=== PATIENT | female | born 1975 | race Caucasian/White ===

== ENCOUNTER 2018-11-26 06:55 | Emergency (ER) | payer SELFPAY ==
[~2018-11-26] VITALS: Ht 167.6 cm; Wt 95.5 kg
[~2018-11-26 06:55] MED LIST: AMOX-842 PO
[2018-11-26 07:01] VITALS: BP 111/71
--- NOTE | 2018-11-26 07:07 | NUR ---
PT AMBULATED TO BED #2
--- NOTE | 2018-11-26 07:20 | NUR ---
PT C/O COUGH X 2 WEEKS. PT STATED SHE ALSO HAS A LUMP IN HER UPPER ABDOMEN REGION DUE TO COUGHING. NO FEVER. PT HAS N/V. SHE STATES SHE VOMITS PHLEGM. LUNG SOUNDS CLEAR BILATERAL . DENIES D; SKIN IS PINK/WARM/DRY; AAOX4 WITH EVEN AND STEADY GAIT; LUNGS CLEAR BL; HR EVEN AND REGULAR; PT DENIES ANY FEVER, CP, SOB, OR COUGH AT THIS TIME; PATIENT STATES PAIN OF 7/10 AT THIS TIME; VSS; PATIENT POSITIONED FOR COMFORT; HOB ELEVATED; BEDRAILS UP X2; BED DOWN. ER MD MADE AWARE OF PT STATUS.
[2018-11-26 07:50] VITALS: BP 111/71
--- NOTE | 2018-11-26 07:51 | NUR ---
Patient discharged with v/s stable. Written and verbal after care instructions given and explained. Patient alert, oriented and verbalized understanding of instructions. Ambulatory with steady gait. All questions addressed prior to discharge. ID band removed. Patient advised to follow up with PMD. Rx of PREDNISONE AND PROMETHAZINE HYDROCHLORIDE given. Patient educated on indication of medication including possible reaction and side effects. Opportunity to ask questions provided and answered.
== END 2018-11-26 07:51 | disposition home or self-care (01) ==
LOC: MED 06:55
DX: R05 Cough (principal); R50.9 Fever, unspecified; Z79.2 Long term (current) use of antibiotics
CPT/HCPCS: 71045; 99283; Q0092

== ENCOUNTER 2018-12-01 08:13 | Emergency (ER) | payer SELFPAY ==
[~2018-12-01] VITALS: Ht 170.2 cm; Wt 94.6 kg
[2018-12-01 08:15] VITALS: BP 110/96
--- NOTE | 2018-12-01 08:23 | NUR ---
Monique york in [facility] - 12/01/18 at 0823 by [facility] PT AMBULATES TO BED 11
--- NOTE | 2018-12-01 08:24 | NUR ---
PT AMBULATES TO BED 2
--- NOTE | 2018-12-01 08:26 | NUR ---
PT BIB SELF TO THE ED WITH THE CHIEF C/O LUQ ABDOMINAL PAIN THAT RADIATES TO BACK. TENDER TO TOUCH. ABDOMEN SOFT, ROUND. ACTIVE BOWEL SOUND. PT REPORTS NAUSEATED. VOMITED X4, YELLOWISH. NO BLOOD IN VOMIT. REPORTS NO APPITITE. DENIES DIARRHEA. DENIES ANY FEVER. DENIES BURNING OR FREQUENCY OF URINATION. STATES PAIN OF 8/10. VSS. ER AWARE.
--- NOTE | 2018-12-01 08:35 | NUR ---
Patient being evaluated by physician at bedside.
[2018-12-01] MEDS ORDERED: KETOROLAC 30 MG/ML VIAL IVP ONE (08:40)
[2018-12-01] MEDS ORDERED: NACL 0.9% 1,000 ML IV SCH (08:40)
--- NOTE | 2018-12-01 09:00 | NUR ---
PT TAKEN FOR CT.
[2018-12-01 09:01] LABS: BASOPHILS % (AUTO) 0.5 % (0.0-2.0); EOSINOPHILS # (AUTO) 0.1 K/uL (0-0.4); EOSINOPHILS % (AUTO) 1.6 % (0.0-4.0); HEMATOCRIT 39.5 % (36-48); HEMOGLOBIN 13.2 g/dL (12.0-16.0); LYMPHOCYTES % (AUTO) 29.3 % (20.5-51.1); MEAN CORPUSCULAR HEMOGLOBIN 27 pg (27-31); MEAN CORPUSCULAR HGB CONC 33 g/dL (33-37); MEAN CORPUSCULAR VOLUME 81.6 fL (80-94); MONOCYTES # (AUTO) 0.4 K/uL (0.8-1.0); MONOCYTES % (AUTO) 5.5 % (1.7-9.3); NEUTROPHILS # (AUTO) 4.4 K/uL (1.8-7.7); NEUTROPHILS % (AUTO) 63.1 % (42.2-75.2); PLATELET COUNT (AUTO) 301 K/uL (140-450); RED BLOOD CELL COUNT(AUTO) 4.84 MIL/uL (4.20-5.40); RED CELL DISTRIBUTION WIDTH 14.3 % (11.6-13.7); WHITE BLOOD COUNT (AUTO) 6.9 K/uL (4.8-10.8)
[2018-12-01 09:14] LABS: ANION GAP 9.8 (8-16); CARBON DIOXIDE 29.8 mmol/L (21-32); CREATININE 0.6 mg/dL (0.6-1.3); POTASSIUM 3.6 mmol/L (3.5-5.1)
[2018-12-01 09:21] LABS: ALBUMIN 3.4 g/dL (3.4-5.0)
--- NOTE | 2018-12-01 09:48 | NUR ---
PT APPEARS RELAXED AND RESTING IN BED. PT DENIES ANY NAUSEA AT THIS TIME. NO VOMITING NOTED.
--- NOTE | 2018-12-01 10:09 | NUR ---
PT BEING REEVALUATED BY ER AT THIS TIME.
--- NOTE | 2018-12-01 11:03 | NUR ---
Patient discharged with v/s stable. Written and verbal after care instructions given and explained. Patient alert, oriented and verbalized understanding of instructions. Ambulatory with steady gait. All questions addressed prior to discharge. ID band removed. Patient advised to follow up with PMD. Rx of MIRALAX AND NORCO given. Patient educated on indication of medication including possible reaction and side effects. Opportunity to ask questions provided and answered.
[2018-12-01 11:04] VITALS: BP 105/60
--- NOTE | 2018-12-03 10:46 | NUR ---
Late entry. Confirmed with RN that 1000ml 0.9 NS IV completed at 10:00.
== END 2018-12-01 11:03 | disposition home or self-care (01) ==
LOC: MED 08:13
DX: R10.12 Left upper quadrant pain (principal); Z79.2 Long term (current) use of antibiotics; Z90.49 Acquired absence of other specified parts of digestive tract
CPT/HCPCS: 36415; 74176; 80053; 81002; 81025; 83690; 85025; 96361; 96374; 99284; J1885; J7030

== ENCOUNTER 2021-04-02 16:23 | Emergency (ER) | payer MEDICAID ==
[~2021-04-02] VITALS: Ht 170.2 cm; Wt 68.0 kg
[~2021-04-02 16:23] MED LIST changes: -AMOX-842 PO; +AMOX1TAB8 PO
[2021-04-02 16:28] VITALS: BP 100/67
[2021-04-02] MEDS ORDERED: KETOROLAC 30 MG/ML VIAL IM ONE (17:55)
[2021-04-02 18:12] LABS: BASOPHILS % (AUTO) 0.1 % (0.0-2.0); EOSINOPHILS % (AUTO) 0.2 % (0.0-4.0); HEMATOCRIT 38.5 % (36-48); HEMOGLOBIN 12.8 g/dL (12.0-16.0); LYMPHOCYTES % (AUTO) 11.5 % (20.5-51.1); MEAN CORPUSCULAR HEMOGLOBIN 29 pg (27-31); MEAN CORPUSCULAR HGB CONC 33 g/dL (33-37); MONOCYTES # (AUTO) 0.8 K/uL (0.8-1.0); MONOCYTES % (AUTO) 8.9 % (1.7-9.3); NEUTROPHILS # (AUTO) 7.1 K/uL (1.8-7.7); NEUTROPHILS % (AUTO) 79.3 % (42.2-75.2); PLATELET COUNT (AUTO) 268 K/uL (140-450); RED BLOOD CELL COUNT(AUTO) 4.43 MIL/uL (4.20-5.40); RED CELL DISTRIBUTION WIDTH 13.9 % (11.6-13.7); WHITE BLOOD COUNT (AUTO) 8.9 K/uL (4.8-10.8)
[2021-04-02 18:24] LABS: ALBUMIN 3.5 g/dL (3.4-5.0); ANION GAP 9.8 (8-16); CREATININE 1.3 mg/dL (0.6-1.3); POTASSIUM 3.8 mmol/L (3.5-5.1); TOTAL BILIRUBIN 4.5 mg/dL (0.0-1.0)
[2021-04-02] MEDS ORDERED: PYR100 PO (18:52)
[2021-04-02] MEDS ORDERED: SULF-59 PO (18:52)
[2021-04-02] MEDS ORDERED: ACET-10509 PO (18:52)
--- NOTE | 2021-04-02 18:54 | NUR ---
PT COMPLAINS OF BODYACHES, HOTFLASHES X 2 DAYS. PT DENIES COUGH, STATES THAT LAST PERIOD WAS IN NOVEMBER. PT DENIES SOB. PT COMPLAINS ALSO COMPLAINS OF ABDOMINAL PAIN 04/17, DENIES N/V/D. DECREASED APPETITE. PMH - HERNIA ALLERGIES - NKA
[2021-04-02] MEDS ORDERED: KETOROLAC 30 MG/ML VIAL ONE (18:57)
[2021-04-02 19:04] VITALS: BP 100/67
--- NOTE | 2021-04-02 19:05 | NUR ---
Patient discharged with v/s stable. Written and verbal after care instructions given and explained. Patient alert, oriented and verbalized understanding of instructions. Ambulatory with steady gait. All questions addressed prior to discharge. ID band removed. Patient advised to follow up with PMD. Rx of bactrim, pyridium, tylenol given. Patient educated on indication of medication including possible reaction and side effects. Opportunity to ask questions provided and answered.
== END 2021-04-02 19:05 | disposition home or self-care (01) ==
LOC: MED 16:23
DX: N39.0 Urinary tract infection, site not specified (principal)
CPT/HCPCS: 36415; 80053; 81002; 81025; 85025; 96372; 99283; J1885

== ENCOUNTER 2021-06-12 17:18 | Emergency (ER) | payer MEDICAID ==
[~2021-06-12] VITALS: Ht 170.2 cm; Wt 74.8 kg
[~2021-06-12 17:18] MED LIST changes: +ACET-10509 PO; +PYR100 PO; +SULF-59 PO
[2021-06-12 17:53] VITALS: BP 115/71
--- NOTE | 2021-06-12 21:30 | NUR ---
PT SEEN AND EVALUATED BY DR. BALL. NO NURSING CARE PROVIDED.
[2021-06-12] MEDS ORDERED: NAPR-54 PO (22:00)
== END 2021-06-12 22:15 | disposition home or self-care (01) ==
LOC: MED 17:18
DX: M79.18 Myalgia, other site (principal); M25.511 Pain in right shoulder; Z79.1 Long term (current) use of non-steroidal anti-inflammatories (NSAID); Z79.899 Other long term (current) drug therapy; Z79.2 Long term (current) use of antibiotics
CPT/HCPCS: 73030; 99283

== ENCOUNTER 2021-10-09 14:38 | Emergency (ER) | payer MEDICAID ==
[~2021-10-09] VITALS: Ht 170.2 cm; Wt 74.8 kg
[~2021-10-09 14:38] MED LIST changes: +AMOX-1230 PO; -AMOX1TAB8 PO; +NAPR-54 PO
[2021-10-09 14:52] VITALS: BP 126/81
--- NOTE | 2021-10-09 14:59 | NUR ---
PT AMB TO BED 12.
[2021-10-09] MEDS ORDERED: MORPHINE SULFATE 4 MG/ML SYR IVP ONE (15:25)
[2021-10-09] MEDS ORDERED: KETOROLAC 30 MG/ML VIAL IVP ONE (15:25)
[2021-10-09] MEDS ORDERED: ONDANSETRON 4 MG/2 ML VIAL IVP ONE (15:25)
--- NOTE | 2021-10-09 15:25 | NUR ---
LAB AT BEDSIDE.
[2021-10-09 15:33] LABS: HEMATOCRIT 40.8 % (36-48); MEAN CORPUSCULAR HEMOGLOBIN 29 pg (27-31); MEAN CORPUSCULAR HGB CONC 34 g/dL (33-37); MEAN CORPUSCULAR VOLUME 84.7 fL (80-94); PLATELET COUNT (AUTO) 223 K/uL (140-450); RED BLOOD CELL COUNT(AUTO) 4.82 MIL/uL (4.20-5.40); RED CELL DISTRIBUTION WIDTH 14.5 % (11.6-13.7); WHITE BLOOD COUNT (AUTO) 8.5 K/uL (4.8-10.8)
[2021-10-09 15:33] LABS: APPEARANCE,URINE CLEAR (CLEAR); BILIRUBIN,URINE 1+ (NEGATIVE); BLOOD, URINE 3+ (NEGATIVE); COLOR,URINE YELLOW (YELLOW); LEUKOCYTE ESTERASE ,URINE 1+ (NEGATIVE); NITRITE, URINE NEGATIVE (NEGATIVE); UGLUCOSE NEGATIVE (NEGATIVE)
--- NOTE | 2021-10-09 15:40 | NUR ---
45Y FEMALE FROM HOME DUE TO C/O LEFT FLANK PAIN, URINARY BURNING, AND NAUSEA X1 DAY. PT STATED TODAY SHE STARTED TO EXPERIENCE SUBJECTIVE FEVER AND EXPERINCED HEMATURIA XTODAY. PAIN IS CURRENTLY 10/10 AND IS THROBBING LIKE PAIN. PT IS CURRENTLY A&OX4, SKIN DRY AND INTACT. PT PROVIDED WITH GOWN BEDSIDE PMH: GALL BLADDER REMOVAL NKA
[2021-10-09 15:55] LABS: ALBUMIN 3.2 g/dL (3.4-5.0); ANION GAP 14.1 (8-16); CARBON DIOXIDE 26.6 mmol/L (21-32); CREATININE 0.9 mg/dL (0.6-1.3); POTASSIUM 3.7 mmol/L (3.5-5.1); TOTAL BILIRUBIN 4.2 mg/dL (0.0-1.0)
[2021-10-09 16:47] LABS: CALCIUM OXALATE CRYSTALS,UR None Seen /HPF (None Seen); COARSE GRANULAR CASTS,URINE None Seen /LPF (None Seen); FINE GRANULAR CASTS,URINE None Seen /LPF (None Seen); HYALINE CASTS, URINE None Seen /LPF (None Seen); OTHER CASTS, URINE None Seen /LPF (None Seen); OTHER CRYSTALS,URINE None Seen /HPF (None Seen); RED BLOOD CELL CASTS,URINE None Seen /LPF (None Seen); TRICHOMONAS,URINE None Seen /HPF (None Seen); TRIPLE PHOSPHATE CRYSTAL,UR None Seen /HPF (None Seen); URIC ACID CRYSTALS,URINE None Seen /HPF (None Seen); URINE AMORPHOUS URATE None Seen /HPF (None Seen); WAXY CASTS,URINE None Seen /LPF (None Seen); YEAST,URINE None Seen /HPF (None Seen)
--- NOTE | 2021-10-09 17:00 | NUR ---
Patient appears to be resting comfortably in bed. Vital Signs within normal limits. Respirations even and unlabored. BED IN LOWEST POSITION AND LOCKED. LIGHTS TURNED OFF IN ROOM
[2021-10-09 17:27] LABS: BASOPHILS % (MANUAL) 0 % (0-2); EOSINOPHILS % (MANUAL) 0 % (0-4); LYMPHOCYTES % (MANUAL) 7 % (20-46); MONOCYTES % (MANUAL) 5 % (5-12)
[2021-10-09] MEDS ORDERED: IBUP-2213 PO (17:27)
[2021-10-09] MEDS ORDERED: CEPH250C16 PO (17:27)
[2021-10-09 17:28] LABS: BUFFY COAT SMEAR PREP N
[2021-10-09] MEDS ORDERED: cefTRIAXone 1,000 MG VIAL ONE (17:35)
[2021-10-09 18:19] VITALS: BP 110/62
--- NOTE | 2021-10-09 18:20 | NUR ---
Patient discharged with v/s stable. Written and verbal after care instructions given and explained. Patient alert, oriented and verbalized understanding of instructions. Ambulatory with steady gait. All questions addressed prior to discharge. ID band removed. Patient advised to follow up with PMD. Rx of KEFLEX AND IBUPROFEN given. Patient educated on indication of medication including possible reaction and side effects. Opportunity to ask questions provided and answered.
== END 2021-10-09 18:20 | disposition home or self-care (01) ==
LOC: MED 14:38
DX: N12 Tubulo-interstitial nephritis, not specified as acute or chronic (principal)
CPT/HCPCS: 36415; 74176; 80053; 81001; 81025; 83690; 85025; 87086; 96365; 96375; 99284; J0696; J1885; J2270; J2405

== ENCOUNTER 2021-12-29 16:30 | Emergency (ER) | payer MEDICAID ==
[~2021-12-29] VITALS: Ht 170.2 cm; Wt 78.9 kg
[~2021-12-29 16:30] MED LIST changes: +CEPH250C16 PO; +IBUP-2213 PO
[2021-12-29 16:34] VITALS: BP 107/78
== END 2021-12-29 17:07 | disposition home or self-care (01) ==
LOC: MED 16:30
DX: L72.8 Other follicular cysts of the skin and subcutaneous tissue (principal); M54.2 Cervicalgia; Z79.899 Other long term (current) drug therapy
CPT/HCPCS: 99284

== ENCOUNTER 2022-01-01 15:29 | Emergency (ER) | payer MEDICAID ==
[~2022-01-01] VITALS: Ht 170.2 cm; Wt 79.9 kg
[2022-01-01 15:47] VITALS: BP 114/73
--- NOTE | 2022-01-01 15:53 | NUR ---
PT AMB TO BED2.
--- NOTE | 2022-01-01 16:23 | NUR ---
46 Y/O FEMALE STATES SHE HAS LUMPS/BUMPS THAT APPEARED ON THE RIGHT SIDE OF HER HEAD/NECK, 2 BUMPS TOTAL WHICH SHE FEELS PRESSURE. SHE STATES SHE HAD FEVER ONCE LAST NIGHT
[2022-01-01] MEDS ORDERED: IBUPROFEN 600 MG TAB PO ONE (17:00)
[2022-01-01 17:59] VITALS: BP 114/73
== END 2022-01-01 17:59 | disposition home or self-care (01) ==
LOC: MED 15:29
DX: L98.8 Other specified disorders of the skin and subcutaneous tissue (principal); Z79.2 Long term (current) use of antibiotics; Z79.1 Long term (current) use of non-steroidal anti-inflammatories (NSAID); Z79.899 Other long term (current) drug therapy
CPT/HCPCS: 99284

== ENCOUNTER 2023-08-06 10:00 | Emergency (ER) | payer MEDICAID ==
[~2023-08-06] VITALS: Ht 167.6 cm; Wt 59.0 kg
[2023-08-06 10:44] VITALS: BP 105/76; PULSE 89; RESP 18; TEMP 98; O2SAT 98
[2023-08-06 11:10] LABS: APPEARANCE,URINE CLEAR (CLEAR); BILIRUBIN,URINE NEGATIVE (NEGATIVE); BLOOD, URINE TRACE-I (NEGATIVE); COLOR,URINE YELLOW (YELLOW); LEUKOCYTE ESTERASE ,URINE NEGATIVE (NEGATIVE); NITRITE, URINE NEGATIVE (NEGATIVE); PROTEIN,URINE NEGATIVE (NEGATIVE); UGLUCOSE NEGATIVE (NEGATIVE); UROBILINOGEN,URINE 0.2 EU/dL (0.2 - 1)
[2023-08-06 12:35] LABS: BASOPHILS % (AUTO) 0.2 % (0.0-2.0); EOSINOPHILS # (AUTO) 0.1 K/uL (0-0.4); EOSINOPHILS % (AUTO) 0.9 % (0.0-4.0); HEMOGLOBIN 13.8 g/dL (12.0-16.0); LYMPHOCYTES # (AUTO) 2.2 K/uL (2.5-16.5); LYMPHOCYTES % (AUTO) 23.6 % (20.5-51.1); MEAN CORPUSCULAR HEMOGLOBIN 28 pg (27-31); MEAN CORPUSCULAR HGB CONC 33 g/dL (33-37); MONOCYTES # (AUTO) 0.5 K/uL (0.8-1.0); MONOCYTES % (AUTO) 5.4 % (1.7-9.3); NEUTROPHILS # (AUTO) 6.6 K/uL (1.8-7.7); NEUTROPHILS % (AUTO) 69.9 % (42.2-75.2); PLATELET COUNT (AUTO) 313 K/uL (140-450); RED BLOOD CELL COUNT(AUTO) 4.94 MIL/uL (4.20-5.40); RED CELL DISTRIBUTION WIDTH 13.8 % (11.6-13.7); WHITE BLOOD COUNT (AUTO) 9.4 K/uL (4.8-10.8)
[2023-08-06 13:15] LABS: ANION GAP 12.3 (8-16); CALCIUM 8.9 mg/dL (8.5-10.1); CARBON DIOXIDE 28.7 mmol/L (21-32); CREATININE 0.7 mg/dL (0.6-1.3)
[2023-08-06 13:37] LABS: ALBUMIN 3.6 g/dL (3.4-5.0); BILIRUBIN,DIRECT 0.3 mg/dL (0.0-0.3); TOTAL BILIRUBIN 2.9 mg/dL (0.0-1.0); TOTAL PROTEIN, SERUM 7.6 g/dL (6.4-8.2)
[2023-08-06] MEDS ORDERED: KETOROLAC 30 MG/ML VIAL IM ONE (13:40)
[2023-08-06] MEDS ORDERED: NAPR-54 PO (15:06)
[2023-08-06] MEDS ORDERED: ACET-10509 PO (15:06)
[2023-08-06 15:30] VITALS: BP 11/75; PULSE 80; RESP 18; TEMP 98; O2SAT 98
== END 2023-08-06 15:30 | disposition home or self-care (01) ==
LOC: MED 10:00
DX: R07.81 Pleurodynia (principal); Z90.49 Acquired absence of other specified parts of digestive tract; Z79.899 Other long term (current) drug therapy; Z79.1 Long term (current) use of non-steroidal anti-inflammatories (NSAID); Z79.2 Long term (current) use of antibiotics
CPT/HCPCS: 36415; 71101; 80048; 80076; 81003; 81025; 83690; 85025; 96372; 99284; J1885

== ENCOUNTER 2023-08-25 12:55 | Emergency (ER) | payer OTHER, MEDICAID ==
[~2023-08-25] VITALS: Ht 167.6 cm; Wt 72.6 kg
[2023-08-25 13:25] VITALS: BP 103/65; PULSE 86; RESP 18; TEMP 98; O2SAT 98
[2023-08-25] MEDS ORDERED: KETOROLAC 30 MG/ML VIAL IM ONE (15:05)
[2023-08-25] MEDS ORDERED: NAPR-1704 PO (15:10)
[2023-08-25] MEDS ORDERED: CAPS1ADH5 TP (15:10)
== END 2023-08-25 15:54 | disposition home or self-care (01) ==
LOC: MED 12:55
DX: S46.811A Strain of other muscles, fascia and tendons at shoulder and upper arm level, right arm, initial encounter (principal); V49.88XA Car occupant (driver) (passenger) injured in other specified transport accidents, initial encounter; Y93.89 Activity, other specified; Y92.89 Other specified places as the place of occurrence of the external cause; Y99.8 Other external cause status
CPT/HCPCS: 73030; 81025; 96372; 99283; J1885

== ENCOUNTER 2023-08-27 10:18 | Emergency (ER) | payer OTHER, MEDICAID ==
[~2023-08-27] VITALS: Ht 172.7 cm; Wt 77.1 kg
[~2023-08-27 10:18] MED LIST changes: +CAPS1ADH5 TP; +NAPR-1704 PO
[2023-08-27 10:47] VITALS: BP 106/68; PULSE 76; RESP 14; TEMP 97.6; O2SAT 97
[2023-08-27] MEDS ORDERED: KETOROLAC 30 MG/ML VIAL IM ONE (13:05)
== END 2023-08-27 13:32 | disposition home or self-care (01) ==
LOC: MED 10:18
DX: M47.892 Other spondylosis, cervical region (principal); M62.838 Other muscle spasm; M25.511 Pain in right shoulder; Z79.899 Other long term (current) drug therapy
CPT/HCPCS: 72050; 96372; 99283; J1885